=== PATIENT | male | born 1975 | race Hispanic/Latino ===

== ENCOUNTER 2018-08-06 23:25 | Emergency (ER) | payer SELFPAY ==
[2018-08-06 23:32] VITALS: BMI 42.3
[2018-08-06 23:36] VITALS: TEMP 98.4
[2018-08-06] MEDS: Albuterol-Ipratrop 3 mg / 0.5 (3 ml) UD IH SCH ×3 (23:40→23:59)
--- NOTE | 2018-08-06 23:46 | ED PDOC ---
Arrival/HPI - General Historian: Patient - History of Present Illness Narrative History of Present Illness (Text): 08/06/18 23:38 42 y/o male, pmh including hypothyroidism, nkda, c/o coughing and shortness of breath x 6 days. Pt. stated that she had rt. knee surgery about 2 weeks ago, 1 week later started to have have coughing and shortness of breath, stated that he has of pneumonia, no fever or chills, no night sweat, no dizziness, no change in vision, no other medical or psychological complaints. <Cirilo Connelly - Last Filed: 08/07/18 01:50> <Vimal Napier - Last Filed: 08/07/18 03:16> - General Chief Complaint: Shortness Of Breath Time Seen by Provider: 08/06/18 23:38 Past Medical History - Provider Review Nursing Documentation Reviewed: Yes - Pulmonary Hx Pneumonia: Yes - Endocrine/Metabolic Hx Hypothyroidism: Yes - Musculoskeletal/Rheumatological Other/Comment: Right Knee Injury. Right Hip Problem. Right Wrist Cyst - Psychiatric Hx Substance Use: No - Surgical History Other/Comment: Right Hip Replacement. Right Knee Surgery. Cyst Removal on the Right Wrist. <Cirilo Connelly - Last Filed: 08/07/18 01:50> Family/Social History - Physician Review Nursing Documentation Reviewed: Yes Family/Social History: Unknown Family HX Smoking Status: Heavy Smoker > 10 Cigarettes Daily Hx Alcohol Use: Yes Frequency of alcohol use: Socially Hx Substance Use: No <Cirilo Connelly - Last Filed: 08/07/18 01:50> Allergies/Home Meds <Cirilo Connelly - Last Filed: 08/07/18 01:50> <Vimal Napier - Last Filed: 08/07/18 03:16> Allergies/Adverse Reactions: Allergies No Known Allergies Allergy (Verified 08/06/18 23:31) Home Medications: Home Meds Medication Instructions Recorded Confirmed Levothyroxine Sodium [Synthroid] 250 mcg PO DAILY 08/06/18 08/06/18 Review of Systems - Review of Systems Constitutional: absent: Fatigue, Fevers Eyes: absent: Vision Changes ENT: absent: Hearing Changes Respiratory: SOB, Cough, Sputum, Wheezing Cardiovascular: absent: Chest Pain, Palpitations Gastrointestinal: absent: Abdominal Pain, Nausea, Vomiting Musculoskeletal: absent: Arthralgias, Back Pain Skin: absent: Rash, Pruritis Neurological: absent: Headache, Dizziness Psychiatric: absent: Anxiety, Depression, Suicidal Ideation <Cirilo Connelly - Last Filed: 08/07/18 01:50> Physical Exam Vital Signs Reviewed: Yes Vital Signs Temp Pulse Resp BP Pulse Ox 08/06/18 23:31 98.4 F 83 20 155/96 H 95 Temperature: Afebrile Blood Pressure: Hypertensive Pulse: Regular Respiratory Rate: Normal Appearance: Positive for: Well-Appearing, Non-Toxic, Comfortable Pain Distress: None Mental Status: Positive for: Alert and Oriented X 3 - Systems Exam Head: Present: Atraumatic, Normocephalic Pupils: Present: PERRL Extroacular Muscles: Present: EOMI Conjunctiva: Present: Normal Mouth: Present: Moist Mucous Membranes Neck: Present: Normal Range of Motion Respiratory/Chest: Present: Wheezes, Decreased Breath Sounds, Rales, Rhonchi. No: Respiratory Distress, Accessory Muscle Use, Retracting, Tachypneic, Tender to Palpation Cardiovascular: Present: Regular Rate and Rhythm, Normal S1, S2. No: Murmurs Abdomen: No: Tenderness, Distention, Peritoneal Signs, Rebound, Guarding Back: Present: Normal Inspection Upper Extremity: Present: Normal Inspection. No: Cyanosis, Edema Lower Extremity: Present: Normal Inspection. No: Edema Neurological: Present: GCS=15, CN II-XII Intact, Speech Normal, Motor Func Grossly Intact, Gait Normal, Memory Normal Skin: Present: Warm, Dry, Normal Color. No: Rashes Psychiatric: Present: Alert, Oriented x 3, Normal Insight, Normal Concentration <Cirilo Connelly - Last Filed: 08/07/18 01:50> Vital Signs Temp Pulse Resp BP Pulse Ox 08/06/18 23:31 98.4 F 83 20 155/96 H 95 <Vimal Napier - Last Filed: 08/07/18 03:16> Medical Decision Making ED Course and Treatment: 08/06/18 23:51 Penumonia vs. Bronchitis vs. PE -Labs/rapid flu -Chest xray -IV solumedrol/duoneb -Observe and reassess 08/07/18 01:50 -EKG: NSR @ 82 BPM, no ST elevation or depression, no T wave inversion. -Chest xray: ER wet read: no active disease -Labs show no acute findings except wbc 13.1 (likely stress induced, afebrile). -Dimer 1026, CTA ordered -Case discussed and endorsed to the current ER attending DR. Napier, he would follow up the CTA and dispo the patient. - EKG Interpretation EKG Interpretation (Text): 08/07/18 00:46 -EKG: NSR @ 82 BPM, no ST elevation or depression, no T wave inversion. Interpreted by ED Physician: Yes Type: 12 lead EKG <Cirilo Connelly Q - Last Filed: 08/07/18 01:50> ED Course and Treatment: EXAM: CTA OF THE CHEST WITH IV CONTRAST Electronically signed on Aug 07, 2018 2:20:05 AM EDT by: Andreia Lamb M.D IMPRESSION: No demonstrated pulmonary embolism or arterial dissection. 08/07/18 03:01 On re-evaluation, patient is in no acute distress. I have discussed the results and plan with the patient, who expresses understanding. Patient in agreement with plan to be discharged home. Patient is stable for discharge. Patient was instructed to follow up with physician or return if symptoms worsen or new concerning symptoms arise. - Lab Interpretations Lab Results: 08/06/18 23:45 Lab Results 08/06/18 23:45: Sodium Pending, Potassium Pending, Chloride Pending, Carbon Dioxide Pending, Anion Gap Pending, BUN 19, Creatinine 1.0, Est GFR ( Amer) > 60, Est GFR (Non-Af Amer) > 60, Random Glucose 167 H, Calcium 9.4, Magnesium Pending, Total Bilirubin 0.5, AST Pending, ALT Pending, Alkaline Phosphatase Pending, Total Protein 8.2, Albumin 4.3, Globulin 3.9, Albumin/Globulin Ratio 1.1 - RAD Interpretation Radiology Orders: 08/06/18 23:47 CHEST PORTABLE [RAD] Stat - Medication Orders Current Medication Orders: Albuterol/Ipratropium (Duoneb 3 Mg/0.5 Mg (3 Ml) Ud) 3 ml IH Q15M AKI Stop: 08/07/18 00:16 Last Admin: 08/06/18 23:59 Dose: 3 ml Discontinued Medications Methylprednisolone (Solu-Medrol) 125 mg IVP STAT STA Stop: 08/06/18 23:48 Last Admin: 08/06/18 23:58 Dose: 125 mg IVP Administration Document 08/06/18 23:58 ERIC (Rec: 08/06/18 23:58 [facility] [id number]) Charges for Administration # of IVP Administrations 1 <Vimal Napier - Last Filed: 08/07/18 03:16> - PA / PSYCHOLOGIST COUNSELING / Resident Statement KIMBERLY has reviewed & agrees with the documentation as recorded. KIMBERLY has examined the patient and agrees with the treatment plan. <Cirilo Connelly - Last Filed: 08/07/18 01:50> - PA / PSYCHOLOGIST COUNSELING / Resident Statement KIMBERLY has reviewed & agrees with the documentation as recorded. / has examined the patient and agrees with the treatment plan. - Scribe Statement The provider has reviewed the documentation as recorded by the Randy Sanabria Provider Scribe Attestation: All medical record entries made by the Scribe were at my direction and persona lly dictated by me. I have reviewed the chart and agree that the record accurately reflects my personal performance of the history, physical exam, medical decision making, and the department course for this patient. I have also personally directed, reviewed, and agree with the discharge instructions and disposition. <Vimal Napier - Last Filed: 08/07/18 03:16> Disposition/Present on Arrival - Present on Arrival Any Indicators Present on Arrival: No History of DVT/PE: No History of Uncontrolled Diabetes: No Urinary Catheter: No History of Decub. Ulcer: No History Surgical Site Infection Following: None - Disposition Have Diagnosis and Disposition been Completed?: Yes Disposition Time: 01:51 <Cirilo Connelly - Last Filed: 08/07/18 01:50> - Present on Arrival Any Indicators Present on Arrival: No - Disposition Have Diagnosis and Disposition been Completed?: Yes Disposition Time: 02:55 Patient Plan: Discharge <Vimal Napier - Last Filed: 08/07/18 03:16> - Disposition Diagnosis: Bronchitis, Bronchospasm Disposition: HOME/ ROUTINE Condition: STABLE Discharge Instructions (ExitCare): Acute Bronchitis, Adult (DC) Additional Instructions: Take meds as prescribed/stop smoking/follow up with your doctor this week Prescriptions: predniSONE [Prednisone] 40 mg PO DAILY #10 tab Benzonatate [Tessalon Perles] 100 mg PO TID PRN #21 sgl PRN Reason: Cough RX: Albuterol HFA [Ventolin HFA 90 mcg/actuation (8 g)] 2 puff IH [id number] PRN #1 puff PRN Reason: Wheezing Azithromycin [Z-Bob] 250 mg PO DAILY #6 tab Forms: [employer] (Senegalese)
[2018-08-06] MEDS ORDERED: Albuterol-Ipratrop 3 mg / 0.5 (3 ml) UD ONE (23:52)
[2018-08-07 00:03] LABS: HEMOGLOBIN 14.8 g/dL (14.0-18.0); MEAN CELL VOLUME 90.6 fl (80.0-105.0); MEAN CORPUSCULAR HEMOGLOBIN 29.5 pg (25.0-35.0); MEAN CORPUSCULAR HGB CONC 32.5 g/dl (31.0-37.0); RBC 5.02 10^6/uL (3.5-6.1); RED CELL DISTRIBUTION WIDTH 15.2 % (11.5-14.5); WHITE BLOOD COUNT 13.1 10^3/ul (4.5-11.0)
[2018-08-07 00:04] LABS: BASO % 0.8 % (0.0-3.0); EOS # 0.5 (0.0-0.7); EOS % 3.8 % (1.5-5.0); GRAN # 4.64 (1.4-6.5); GRAN % 35.5 % (50.0-68.0); LYMPH % 53.3 % (22.0-35.0); MEAN PLATELET VOLUME 8.8 fl (7.0-11.0); MONO # 0.9 (0.1-0.6); MONO % 6.6 % (1.0-6.0)
[2018-08-07 00:05] LABS: ALB/GLOB RATIO 1.1 (1.1-1.8); ALBUMIN 4.3 g/dL (3.0-4.8); BASO # 0.11 K/mm3 (0.0-2.0); BLOOD UREA NITROGEN 19 mg/dL (7-21); CALCIUM 9.4 mg/dL (8.4-10.5); GFR NON-AFRICAN AMERICAN > 60
[2018-08-07 00:21] LABS: ALT/SGPT 44 U/L (7-56); AST/SGOT 41 U/L (17-59)
[2018-08-07] MEDS ORDERED: Iohexol 350 MG/100 ML VIAL ONE (01:06)
[2018-08-07 01:28] VITALS: RESP 18
[2018-08-07 02:59] VITALS: BP 138/88; PULSE 75; O2SAT 96
--- NOTE | 2018-08-07 10:01 | CT ---
Date of service: 08/07/2018 PROCEDURE: CT Chest with contrast (Pulmonary Angiogram) HISTORY: cough, sob, recent rt. knee surgery, r/o pe COMPARISON: None available. TECHNIQUE: Axial computed tomography images were obtained of the chest in the pulmonary arterial phase of enhancement. Coronal and sagittal reformatted images were created and reviewed. Maximum intensity projection (MIP) reconstructed images in the following planes: Sagittal and coronal Intravenous contrast dose: 100 cc Omnipaque 350. Mean Hounsfield value in the main pulmonary artery: 149.09 Radiation dose: Total exam DLP = 539.65 mGy-cm. This CT exam was performed using one or more of the following dose reduction techniques: Automated exposure control, adjustment of the mA and/or kV according to patient size, and/or use of iterative reconstruction technique. FINDINGS: PULMONARY ARTERIES: Unremarkable. No pulmonary embolism. AORTA: No acute findings. No thoracic aortic aneurysm. No atherosclerotic calcification or mural plaque present. LUNGS: Pulmonary nodule lateral segment left lower lobe 5.6 mm. Additional pulmonary nodule same size basilar segment right lower lobe. PLEURAL SPACES: Unremarkable. No effusion or pneumothorax. HEART: Unremarkable. No cardiomegaly. No significant pericardial effusion. LYMPH NODES: No lymphadenopathy. BONES, CHEST WALL: Unremarkable. No fracture or destructive lesion OTHER FINDINGS: Unremarkable. Incomplete visualization hepatomegaly and hepatic steatosis. IMPRESSION: No central or large pulmonary emboli identified. Diagnostic value of the study based on opacification of the main pulmonary artery and qualitative assessment limits sensitivity and accuracy at and beyond the segmental branches. There are multiple, solid, pulmonary nodules that are less than 6 mm in size. According to the 2017 Fleischner criteria, if the patient is low risk, no routine follow-up is recommended. If the patient is high risk, an optional CT at 12 months is recommended Concordant results (preliminary interpretation) provided by [employer]. Procedure Completed: :15. Preliminary Report: Dictated and Authenticated: 02:20. Final Interpretation: 09:57.
--- NOTE | 2018-08-07 10:35 | RAD ---
Date of service: 08/07/2018 HISTORY: medical clearance COMPARISON: August 07, 2018 Pulmonary angiogram FINDINGS: LUNGS: No active pulmonary disease. PLEURA: No significant pleural effusion identified, no pneumothorax apparent. CARDIOVASCULAR: No atherosclerotic calcification present Normal. OSSEOUS STRUCTURES: No significant abnormalities. VISUALIZED UPPER ABDOMEN: Normal. OTHER FINDINGS: None. IMPRESSION: No active disease. Concordant results with the preliminary interpretation rendered by the emergency department physician procedure.
--- NOTE | 2018-08-07 12:23 | CARD ---
APPROVED REPORT Date of service: 08/06/2018 EKG Measurement Heart [id number] <Conclusion> Normal sinus rhythm Inferior-posterior infarct, age undetermined Abnormal ECG
== END 2018-08-07 03:09 | disposition home or self-care (01) ==
LOC: MERGE 23:25 → ED 23:25
DX: J40 Bronchitis, not specified as acute or chronic (principal); J98.01 Acute bronchospasm; F17.210 Nicotine dependence, cigarettes, uncomplicated
CPT/HCPCS: 71045; 71275; 80053; 83735; 85025; 85378; 87804; 93005; 96374; 99284; J2930; Q9967